=== PATIENT | female | born 1985 | race Caucasian/White ===

== ENCOUNTER 2016-04-12 19:05 | Outpatient (CLI) | payer OTHER ==
[~2016-04-12 19:05] MED LIST: FLEXERIL10 MG PO; NAPROSYN500 MG PO
[2016-04-12 19:11] VITALS: BP 127/78
[2016-04-12 19:14] VITALS: BP 127/78
[2016-04-12] MEDS ORDERED: ZOFRAN8 MG PO (19:47)
[2016-04-12] MEDS ORDERED: ZOLOFT50 MG PO (19:47)
[2016-04-12 20:26] LABS: MEAN PLAT.VOLUME 11.6 uM^3 (9.5-12.4); PLATELET COUNT 270 K/uL (156-360)
[2016-04-12 20:46] LABS: ADD MIUA? NO; BILIRUBIN NEGATIVE; BLOOD NEGATIVE; COLOR STRAW ((YELLOW)); GLUCOSE (STRIP) NEGATIVE; KETONES 5; LEUKOCYTES NEGATIVE; NITRITE NEGATIVE; PROTEIN (STRIP) NEGATIVE; SPECIFIC GRAVITY 1.003 (1.000-1.030); UCUL ADDED? NO; UROBILINOGEN 0.2 MG/DL (0.2-1.0)
[2016-04-12 20:49] LABS: ANION GAP 9 MEQ/L (2-14); CHLORIDE 104 MEQ/L (99-109); POTASSIUM 3.4 MEQ/L (3.7-5.4); SAMPLE HEMOLYSIS CHECK 0; SAMPLE ICTERIC CHECK 0; SAMPLE LIPEMIA CHECK 0; SODIUM 136 MEQ/L (136-147); TOTAL BILIRUBIN 0.4 MG/DL (0.0-1.0)
[2016-04-12 20:53] LABS: ABS NEUTROPHIL COUNT 11.82; ANISOCYTOSIS 1+; DELETE MACHINE DIFF? YES; HEMATOCRIT 33.9 % (36.0-46.0); LARGE PLATELETS FEW; MCHC 34.8 G/DL (30.0-36.0); MCV 83.3 FL (83-99); MICROCYTOSIS RARE; PLAT.SUFFICIENCY NORMAL; RBC DIS.WIDTH-CV 14.2 % (11.8-14.6); RBC DIS.WIDTH-SD 42.7 % (39-53); RED BLOOD COUNT 4.07 M/uL (3.80-5.20); USER ID NJV; WHITE BLOOD COUNT 14.1 K/uL (4.1-10.2)
[2016-04-12 20:55] LABS: ALKALINE PHOSPHATASE 82 IU/L (3-129); GFR ESTIMATE (CALCULATED) > 59 mL/min/; GLUCOSE 98 mg/dL (70-99); UREA NITROGEN (BUN) 3 mg/dL (9-23)
== END 2016-04-12 23:50 | disposition home or self-care (01) ==
LOC: LDRP-OP 19:05 → 2WEST 19:06 → LDRP-OP 08-10 13:48
PROVIDERS: Midwife
DX: O21.1 Hyperemesis gravidarum with metabolic disturbance (principal); Z3A.27 27 weeks gestation of pregnancy
CPT/HCPCS: 59025; 80053; 81003; 85025; G0378; J2405; J7120

== ENCOUNTER 2016-04-18 11:32 | Outpatient (CLI) | payer OTHER ==
[~2016-04-18 11:32] MED LIST changes: +ZOFRAN8 MG PO; +ZOLOFT50 MG PO
[2016-04-18 11:56] VITALS: BP 116/62
[2016-04-23] MEDS ORDERED: PRENATAL VITAM1 EA10 PO (10:19)
== END 2016-04-18 13:14 | disposition home or self-care (01) ==
LOC: LDRP-OP 11:32 → 2WEST 11:33 → LDRP-OP 08-10
DX: O36.8120 Decreased fetal movements, second trimester, not applicable or unspecified (principal); Z3A.28 28 weeks gestation of pregnancy
CPT/HCPCS: 59025; G0378

== ENCOUNTER → 2016-04-23 | Outpatient (CLI) | payer OTHER ==
[~2016-04-23] VITALS: Ht 175.3 cm; Wt 121.0 kg
[~2016-04-23] MED LIST changes: +PRENATAL VITAM1 EA10 PO
[2016-04-23 10:20] VITALS: BP 120/61
== END | disposition home or self-care (01) ==
LOC: IVINF 10:00
DX: O36.0920 Maternal care for other rhesus isoimmunization, second trimester, not applicable or unspecified (principal); Z3A.28 28 weeks gestation of pregnancy
CPT/HCPCS: 96372; J2790

== ENCOUNTER 2016-06-19 10:36 | Inpatient (IN) | payer OTHER ==
[~2016-06-19] VITALS: Ht 175.3 cm; Wt 114.3 kg
[2016-06-19 12:42] VITALS: BP 124/86
[2016-06-19 13:14] LABS: EOSINOPHIL (%) 1.2 % (0-5); EOSINOPHIL COUNT 0.1 K/uL (0-0.3); HEMATOCRIT 33.4 % (36.0-46.0); IMMATURE GRANULOCYTE (%) 0.3 % (0.0-0.7); INSTRUMENT ABS NEUTROPHIL CT 8.6 K/uL; LYMPHOCYTE COUNT 1.7 K/uL (1.0-2.8); MCH 27.3 PG (29.0-34.0); MCHC 33.2 G/DL (30.0-36.0); MCV 82.1 FL (83-99); MEAN PLAT.VOLUME 10.9 uM^3 (9.5-12.4); MONOCYTE (%) 7.1 % (3-12); MONOCYTE COUNT 0.8 K/uL (0-0.8); NEUTROPHIL (%) 76.2 % (45-76); NEUTROPHIL COUNT 8.6 K/uL (1.8-6.4); PLATELET COUNT 238 K/uL (156-360); RBC DIS.WIDTH-SD 41.4 % (39-53); RED BLOOD COUNT 4.07 M/uL (3.80-5.20); WHITE BLOOD COUNT 11.3 K/uL (4.1-10.2)
[2016-06-19 14:23] VITALS: BP 129/77
[2016-06-19] MEDS ORDERED: ENDOCET 5-3251 EACH PO (17:18)
[2016-06-19] MEDS ORDERED: IBUPROFEN800 MG PO (17:18)
[2016-06-19 18:57] VITALS: BP 135/64
[2016-06-19 20:30] VITALS: BP 137/73
[2016-06-19 22:30] VITALS: BP 143/76
[2016-06-20] VITALS (9 sets, daily range): BP systolic 131–166; BP diastolic 69–87
[2016-06-20 07:10] LABS: EOSINOPHIL (%) 1.5 % (0-5); EOSINOPHIL COUNT 0.2 K/uL (0-0.3); HEMATOCRIT 30.8 % (36.0-46.0); IMMATURE GRANULOCYTE (%) 0.4 % (0.0-0.7); IMMATURE GRANULOCYTE COUNT 0.1 K/uL; INSTRUMENT ABS NEUTROPHIL CT 9.6 K/uL; LYMPHOCYTE COUNT 2.2 K/uL (1.0-2.8); MCH 27.3 PG (29.0-34.0); MCHC 32.8 G/DL (30.0-36.0); MCV 83.2 FL (83-99); MEAN PLAT.VOLUME 11.5 uM^3 (9.5-12.4); MONOCYTE (%) 7.9 % (3-12); NEUTROPHIL (%) 73.2 % (45-76); NEUTROPHIL COUNT 9.6 K/uL (1.8-6.4); PLATELET COUNT 229 K/uL (156-360); RBC DIS.WIDTH-CV 14.2 % (11.8-14.6); RBC DIS.WIDTH-SD 43.2 % (39-53)
[2016-06-21 02:47] VITALS: BP 161/77
[2016-06-21 07:10] VITALS: BP 132/81
[2016-06-21] MEDS ORDERED: LABETALOL HCL200 MG PO (10:12)
[2016-06-21] MEDS ORDERED: VENTOLIN HFA18 GM IH (10:12)
== END 2016-06-21 13:06 | disposition home or self-care (01) | DRG 766 ==
LOC: 2SOUTH 10:36 → 2WEST 12:06 → 2SOUTH 12:46 → 2WEST 06-21 13:06 → 2SOUTH 07-03 07:42
PROVIDERS: Obstetrics & Gynecology
DX: O36.5930 Maternal care for other known or suspected poor fetal growth, third trimester, not applicable or unspecified (principal); O13.4 Gestational [pregnancy-induced] hypertension without significant proteinuria, complicating childbirth; Z3A.37 37 weeks gestation of pregnancy; Z37.0 Single live birth; O34.219 Maternal care for unspecified type scar from previous cesarean delivery; N85.8 Other specified noninflammatory disorders of uterus; Z30.2 Encounter for sterilization
CPT/HCPCS: 83030; 85025; 86900; 86901; 88302; 88307; 94640; 99202; J1100; J2274; J2405; J2790; J7050; J7120

== ENCOUNTER 2016-06-30 01:09 | Emergency (ER) | payer OTHER ==
[~2016-06-30] VITALS: Ht 175.3 cm; Wt 108.0 kg
[~2016-06-30 01:09] MED LIST changes: +ENDOCET 5-3251 EACH PO; +IBUPROFEN800 MG PO; +LABETALOL HCL200 MG PO; +VENTOLIN HFA18 GM IH
[2016-06-30 02:10] LABS: HEMATOCRIT 35.8 % (36.0-46.0); MCH 27.1 PG (29.0-34.0); MCHC 32.7 G/DL (30.0-36.0); MCV 82.9 FL (83-99); MEAN PLAT.VOLUME 10.5 uM^3 (9.5-12.4); PLATELET COUNT 391 K/uL (156-360); RBC DIS.WIDTH-CV 13.5 % (11.8-14.6); RED BLOOD COUNT 4.32 M/uL (3.80-5.20); WHITE BLOOD COUNT 13.5 K/uL (4.1-10.2)
[2016-06-30 02:11] LABS: CHLORIDE 107 mEq/L (99-109); POTASSIUM 3.8 mEq/L (3.7-5.4); SODIUM 141 mEq/L (136-147)
[2016-06-30 02:12] LABS: GLUCOSE 89 mg/dL (70-99)
[2016-06-30 02:14] LABS: ANION GAP 12 MEQ/L (2-14)
[2016-06-30 02:16] LABS: GFR ESTIMATE (CALCULATED) > 59 mL/min/
[2016-06-30 02:17] LABS: UREA NITROGEN (BUN) 12 mg/dL (9-23)
[2016-06-30] MEDS ORDERED: ZOFRAN ODT4 MG PO (02:28)
[2016-06-30 02:45] VITALS: BP 137/94
== END 2016-06-30 02:55 | disposition home or self-care (01) ==
LOC: EME 01:09
PROVIDERS: Emergency Medicine
DX: O90.89 Other complications of the puerperium, not elsewhere classified (principal); L76.22 Postprocedural hemorrhage of skin and subcutaneous tissue following other procedure; G89.18 Other acute postprocedural pain; F53 Mental and behavioral disorders associated with the puerperium, not elsewhere classified; O99.345 Other mental disorders complicating the puerperium; F41.9 Anxiety disorder, unspecified; R11.0 Nausea; R42 Dizziness and giddiness; M54.9 Dorsalgia, unspecified; O99.13 Other diseases of the blood and blood-forming organs and certain disorders involving the immune mechanism complicating the puerperium; D72.829 Elevated white blood cell count, unspecified; O99.03 Anemia complicating the puerperium; D64.9 Anemia, unspecified; Z98.891 History of uterine scar from previous surgery; Z87.891 Personal history of nicotine dependence
CPT/HCPCS: 80048; 85027

== ENCOUNTER 2017-04-04 15:09 | Emergency (ER) | payer OTHER ==
[~2017-04-04] VITALS: Ht 175.3 cm; Wt 124.3 kg
[~2017-04-04 15:09] MED LIST changes: +ZOFRAN ODT4 MG PO
[2017-04-04 15:48] LABS: HEMATOCRIT 38.1 % (36.0-46.0); HEMOGLOBIN 12.4 G/DL (11.9-15.5); MCH 24.1 PG (29.0-34.0); MCHC 32.5 G/DL (30.0-36.0); MCV 74.1 FL (83-99); RBC DIS.WIDTH-CV 16.3 % (11.8-14.6); RBC DIS.WIDTH-SD 43.6 % (39-53); RED BLOOD COUNT 5.14 M/uL (3.80-5.20); WHITE BLOOD COUNT 14.3 K/uL (4.1-10.2)
[2017-04-04 16:06] LABS: CHLORIDE 106 MEQ/L (99-109); POTASSIUM 3.3 MEQ/L (3.7-5.4); SODIUM 138 MEQ/L (136-147); TOTAL BILIRUBIN 0.2 MG/DL (0.0-1.0)
[2017-04-04 16:11] LABS: ALKALINE PHOSPHATASE 76 IU/L (3-129); ALT (GPT) 11 IU/L (3-49); AST (GOT) 11 IU/L (2-34); CREATININE 0.4 MG/DL (0.6-1.3); GFR ESTIMATE (CALCULATED) > 59 mL/min/; GLUCOSE 128 mg/dL (70-99); TOTAL PROTEIN 7.3 G/DL (6.4-8.3); UREA NITROGEN (BUN) 5 mg/dL (9-23)
[2017-04-04 16:15] LABS: QUANTITATIVE HCG < 4.0 MIU/ML
[2017-04-04 16:27] LABS: PLAT.SUFFICIENCY ADEQUATE; PLATELET COUNT 319 K/uL (156-360)
[2017-04-04 17:42] LABS: LIPASE 13 U/L (1.0-51.0)
[2017-04-04] MEDS ORDERED: PREDNISONE20 MG PO (19:21)
[2017-04-04] MEDS ORDERED: VENTOLIN HFA18 GM IH (19:21)
[2017-04-04] MEDS ORDERED: ZOFRAN4 MG SL (19:21)
[2017-04-04 19:48] LABS: APPEARANCE CLEAR ((CLEAR)); BILIRUBIN NEGATIVE; BLOOD NEGATIVE; COLOR YELLOW ((YELLOW)); GLUCOSE (STRIP) NEGATIVE; KETONES NEGATIVE; LEUKOCYTES NEGATIVE; NITRITE NEGATIVE; PROTEIN (STRIP) NEGATIVE; UCUL ADDED? NO; UROBILINOGEN 0.2 MG/DL (0.2-1.0)
[2017-04-04 20:22] VITALS: BP 157/89
== END 2017-04-04 20:23 | disposition home or self-care (01) ==
LOC: EME 15:09
DX: J20.9 Acute bronchitis, unspecified (principal); E87.6 Hypokalemia; R19.7 Diarrhea, unspecified; R11.2 Nausea with vomiting, unspecified; Z87.891 Personal history of nicotine dependence; F32.9 Major depressive disorder, single episode, unspecified; F41.9 Anxiety disorder, unspecified
CPT/HCPCS: 80053; 81003; 83690; 84702; 85027; 87651 90; 94640; 99281; 99285; J2405; J2930; J7030